=== PATIENT | female | born 2005 | race Caucasian/White ===

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

== ENCOUNTER 2024-03-05 13:04 | Emergency (ER) | payer OTHER, SELFPAY ==
[2024-03-05 14:10] VITALS: BP 102/66; PULSE 73; RESP 18; TEMP 36.6; O2SAT 100; BMI 21.2
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
[2024-03-05 14:33] VITALS: BP 102/66; PULSE 73; RESP 18; TEMP 36.6; O2SAT 100
--- NOTE | 2024-03-09 08:49 | PC.NURSE ---
REVIEWED WOUND CULTURE RESULT WITH Nguyen VIDAL. CURRENT ANTIBIOTIC CHANGED TO MINOCYCLINE 100 MG PO BID X 10 DAYS, CALLED INTO CLINIC PHARMACY. PATIENT NOTIFIED OF RESULTS AND CHANGE TO ANTIBIOTIC. PATIENT ADVISED TO FOLLOW UP WITH PCP IF SYMPTOMS PERSIST OR WORSEN. PATIENT VERBALIZED UNDERSTANDING
== END 2024-03-05 14:34 | disposition home or self-care (01) ==
PROVIDERS: Emergency Provider Nurse Practitioner Family; PCP Internal Medicine Adolescent Medicine
DX: L02.216 Cutaneous abscess of umbilicus (principal); B95.61 Methicillin susceptible Staphylococcus aureus infection as the cause of diseases classified elsewhere
CPT/HCPCS: 87070; 87077; 87186; 87205; 99212; 99214; G0463

== ENCOUNTER 2024-03-23 09:22 | Emergency (ER) | payer BC, OTHER, SELFPAY ==
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
[2024-03-23 09:40] VITALS: BP 109/71; PULSE 85; RESP 18; TEMP 36.6; O2SAT 100; BMI 21.6
--- NOTE | 2024-03-23 10:17 | EXP.UTC ---
Discharge Plan Disposition Patient Disposition: Home, Self-Care Condition: Good Prescriptions Prescriptions: No Action Lo Loestrin Fe 1 mg-10 mcg (24)/10 mcg (2) tablet 1 tab PO DAILY Qty: 84 3RF Referrals Follow up/Referrals: Osito Centeno MD [Primary Care Provider] - See instructions Activity Restrictions/Add. Instructions Additional Instructions/Restrictions: sprain- rest Ice with cold pack for 20 minutes remove may repeat for comfort every hour splint for support and swelling no less in the shower. Be sure not too tight but not to lose either Elevate with arm above your heart as much as possible to help reduce swelling and therefore pain Ibuprofen every 6 hours as needed for pain or inflammation. If needs something more you can take Tylenol every 4 hours as needed as long as her primary care has told he was okayed for you to take both. Follow-up immediately if new or worsening symptoms or no noticeable improvement over the next 3-5 days. call ortho if no improvement Clinical Impressions Clinical Impression: Right wrist sprain Instructions Patient Instructions: DI for Wrist Sprain Print Language Print Language: Irish Discharge ED Provider: Sen ([facility])[place] [facility] [place] General Stated complaint: AO 03/22 fall pain in right wrist Mode of Arrival: Ambulatory Source of Information: Patient Limitations: No Limitations Time Seen by Provider: 03/23/24 10:17 Description of Symptoms (Recalled from Triage Doc. by RN): PATIENT C/O RIGHT HAND AND WRIST PAIN AFTER FALLING AND INJURING IT YESTERDAY MORNING HEENT Symptoms (Recalled from RN notes): No Resp Symptoms (Recalled from RN notes): No Skin Symptoms (Recalled from RN notes): No MS Symptoms (Recalled from RN notes): Yes Functional Status (Recalled from RN notes): WNL History of Present Illness Provider Complaint: 18 yr old female presents for rt wrist pain. pt states she fell yesterday Related Data Previous Rx's ?Medication ?Instructions ?Recorded norethindrone 1 mg-ethinyl 1 tab PO DAILY #84 tabs 05/16/23 estradiol 10 mcg (24)-iron 10 mcg(2) tablet (Lo Loestrin Fe) Allergies Allergy/AdvReac Type Severity Reaction Status Date / Time No Known Allergies Allergy Verified 05/16/23 08:42 Worker's Comp Is this a Worker's Comp case?: No PFSH [facility] Disclaimer: The information contained in this section may have been updated after the patient was seen, as this information can be updated by other users. 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) Urinary tract infection Migraine Hyperlipidemia Ankle injury Surgical History , MEAT CURER) History of tonsillectomy Family History , MEAT CURER) No significant family history Social History (Reviewed 03/23/24 @ 10:22 by Humberto Chatterjee ([facility]), MEAT CURER) Smoking Status: Never smoker alcohol intake: never substance use type: denies use current occupational status: other Travel in the last 8 weeks: None household members: family housing: house ROS Obtained: Yes All systems reviewed & no additional complaints except as documented Eyes Eyes: Reports system reviewed and no additional complaints, except as documented ENT Ears, Nose, Mouth, and Throat: Reports system reviewed and no additional complaints, except as documented Cardiovascular Cardiovascular: Reports system reviewed and no additional complaints, except as documented Respiratory Respiratory: Reports system reviewed and no additional complaints, except as documented Gastrointestinal Gastrointestingal: Reports system reviewed and no additional complaints, except as documented Musculoskeletal Musculoskeletal: Reports system reviewed and no additional complaints, except as documented, Reports as per HPI, Reports arthralgias and Reports limited range of motion Integumentary/Breasts Skin/Breast: Reports system reviewed and no additional complaints, except as documented Neurologic Neurologic: Reports system reviewed and no additional complaints, except as documented Hematologic/Lymphatic Henatologic/Lymphatic: Reports system reviewed and no additional complaints, except as documented Allergic/Immunologic Allergic/Immunologic: Reports system reviewed and no additional complaints, except as documented Physical Exam General General appearance: alert and in no apparent distress Eye Eye exam: Present normal appearance ENT ENT exam: Present normal exam Respiratory Respiratory exam: Present normal lung sounds bilaterally Cardiovascular Cardiovascular exam: Present regular rate and normal rhythm Extremities Exam Extremities exam: Present normal inspection, tenderness and normal capillary refill Expanded Upper Extremity Exam Right: L/R Arms Top View: 1. tender Vascular exam: Normal capillary refill Neurological Exam Neurological exam: Present alert and oriented X3 Skin Skin exam: Present warm and intact Medical Decision Making Medical Records Medical records reviewed: Yes I reviewed the patient's medical records. Vinh Inquiry Pt receiving controlled substance: No Vinh was queried for this patient: No Vital Signs: 03/23/24 09:40 Temperature 97.9 F Temperature Source Oral Pulse Rate [Left Brachial] 85 Respiratory Rate 18 Blood Pressure [Left Arm] 109/71 L Blood Pressure Mean [Left Arm] 83 Blood Pressure Source [Left Arm] Automatic Cuff Blood Pressure Position [Left Arm] Sitting 02 Sat by Pulse Oximetry 100 Oxygen Delivery Method Room Air Orders (Tests/Meds): ORDERS Category Date Time Status Wrist XR right minimum 3 views [XR wrist RT min 3V] Exams 03/23/24 09:36 Taken Stat XR hand RT min 3V Stat Exams 03/23/24 09:36 Taken Radiology Data #1: Image Reviewed: Yes I reviewed the patient's radiology results Preliminary Findings: Normal/NAD
[2024-03-23 10:27] VITALS: BP 109/71; PULSE 85; RESP 18; TEMP 36.6; O2SAT 100
== END 2024-03-23 10:31 | disposition home or self-care (01) ==
PROVIDERS: Emergency Provider Nurse Practitioner Family; PCP Internal Medicine Adolescent Medicine
DX: S63.501A Unspecified sprain of right wrist, initial encounter (principal); M25.531 Pain in right wrist; W19.XXXA Unspecified fall, initial encounter
CPT/HCPCS: 73110; 73130; 99212; 99213; G0463

== ENCOUNTER 2024-08-08 18:35 | Emergency (ER) | payer BC, OTHER, SELFPAY ==
[2024-08-08 19:50] VITALS: BP 108/71; PULSE 116; RESP 18; TEMP 37.5; O2SAT 100; BMI 21.6
[2024-08-08 19:50] LABS: UTC Influenza A Antigen Positive (Negative); UTC Influenza B Antigen Negative (Negative)
[2024-08-08 20:00] VITALS: BP 108/71; PULSE 116; RESP 18; TEMP 37.5; O2SAT 100
--- NOTE | 2024-08-08 20:03 | ED_ITS ---
Discharge Plan Disposition Patient Disposition: Home, Self-Care Condition: Good Prescriptions Prescriptions: New oseltamivir [Tamiflu] 75 mg capsule 75 mg PO BID 5 Days Qty: 10 0RF No Action Lo Loestrin Fe 1 mg-10 mcg (24)/10 mcg (2) tablet 1 tab PO DAILY Qty: 84 3RF azithromycin [Zithromax Z-Christ] 250 mg tablet See Rx Instructions .ROUTE .COMPLEX 5 Days Qty: 6 0RF Rx Instructions: For 250 mg dose pack: take 500 mg today (day 1), then 250 mg for 4 days (days 2-5) Referrals Follow up/Referrals: Provider,Referral, MD [Primary Care Provider] - See instructions Activity Restrictions/Add. Instructions Additional Instructions/Restrictions: * Start Tamiflu today if you are going to take it. Discussed risk and possible benefits. * Lots of rest * Increase Fluids water, Gatorade, powerade, pedialyte,if infant/toddler/child * Alternate Tylenol and / or ibuprofen as discussed for fever, aches, chills Follow up IMMEDIATELY with your family doctor for new or worsening Symptoms OR no noticeable improvement over the next 48-72 hours, 911 for difficulty or breathing * You or your child area contagious until no fever, aches, chills for 24 hours with medication for symptoms * Help Prevent the spread of influenza: * ?Wash your hands often. Use soap and water. Wash your hands after you use the bathroom, change a child's diapers, or sneeze. Wash your hands before you prepare or eat food. Use gel hand cleanser that has 60% alcohol, when soap and water are not available. Do not touch your eyes, nose, or mouth unless you have washed your hands first. * Cover your mouth when you sneeze or cough. Cough into a tissue or the bend of your arm. If you use a tissue, throw it away immediately and wash your hands. * Clean shared items with a germ-killing char dust cleaner and salvager. Clean table surfaces, doorknobs, and light switches. Do not share towels, silverware, and dishes with people who are sick. Wash bed sheets, towels, silverware, and dishes with soap and water. * Wear a mask over your mouth and nose if you are sick. The face mask may help protect others from becoming infected with the flu. Wear the mask when in common areas of your home or if you seek care with a healthcare provider. * Stay away from others if you are sick. Stay at home until 24 hours after your fever and symptoms are gone. Clinical Impressions Clinical Impression: Influenza Stand Alone Forms Stand Alone Forms: Work/School Release Instructions Patient Instructions: DI for Influenza -- Adult, Oseltamivir Print Language Print Language: Prydeinig Discharge ED Provider: Dorita Patel Slava [facility] HPI General Stated complaint: nausea,body aches,headache Mode of Arrival: Ambulatory Source of Information: Patient Limitations: No Limitations Time Seen by Provider: 08/08/24 19:50 Description of Symptoms (Recalled from Triage Doc. by RN): PATIENT C/O BODY ACHES AND CHILLS THAT STARTED TODAY HEENT Symptoms (Recalled from RN notes): No Resp Symptoms (Recalled from RN notes): No Skin Symptoms (Recalled from RN notes): No MS Symptoms (Recalled from RN notes): No Functional Status (Recalled from RN notes): WNL History of Present Illness Provider Complaint: Patient states that she started feeling bad earlier today with body aches, chills, and headache States that several family members have been sick with the same symptoms so she came in to get checked Related Data Previous Rx's ?Medication ?Instructions ?Recorded norethindrone 1 mg-ethinyl 1 tab PO DAILY #84 tabs 05/16/23 estradiol 10 mcg (24)-iron 10 mcg(2) tablet (Lo Loestrin Fe) azithromycin 250 mg tablet See Rx Instructions PO .COMPLEX 5 04/14/24 (Zithromax Z-Christ) days #6 tabs oseltamivir 75 mg capsule (Tamiflu) 75 mg PO BID 5 days #10 caps 08/08/24 Allergies Allergy/AdvReac Type Severity Reaction Status Date / Time No Known Allergies Allergy Verified 05/16/23 08:42 Worker's Comp Is this a Worker's Comp case?: No [facility] Disclaimer: The information contained in this section may have been updated after the patient was seen, as this information can be updated by other users. 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) Smoking Status: Never smoker alcohol intake: never substance use type: denies use current occupational status: other Travel in the last 8 weeks: None household members: family housing: house Have you lived/traveled outside [place] in past 30 days?: No Contact w/someone who lives/traveled outside [place] past 30 days?: No Exposure to someone with infectious disease in past 14 days?: No Do you have a fever (greater than 100.4 F or 38 C)?: Yes Have you tested positive for COVID-19: No Exposed to someone with COVID-19 in past 14 days?: No Do you have a sore throat?: Yes Do you have a cough?: Yes Do you have any weakness?: Yes Do you have any diarrhea?: No Are you experiencing any unusual bleeding?: No Do you have any muscle aches/pain?: Yes Do you have any abdominal pain?: Yes Are you experiencing loss of taste or smell?: No ROS Obtained: Yes All systems reviewed & no additional complaints except as documented and Yes Systems reviewed as appropriate & no additional complaints except as documented Constitutional Constitutional: Reports system reviewed and no additional complaints, except as documented, Reports as per HPI, Reports body ache, Reports chills, Reports fever(s) and Reports headache(s) ENT Ears, Nose, Mouth, and Throat: Reports system reviewed and no additional complaints, except as documented, Reports as per HPI, Reports headache(s), Reports nasal congestion and Reports nasal discharge Cardiovascular Cardiovascular: Reports system reviewed and no additional complaints, except as documented and Reports as per HPI Respiratory Respiratory: Reports system reviewed and no additional complaints, except as documented and Reports as per HPI Neurologic Neurologic: Reports headache(s) Physical Exam General General appearance: alert and in no apparent distress ENT ENT exam: Present normal exam, normal oropharynx, mucous membranes moist and TM's normal bilaterally Respiratory Respiratory exam: Present normal lung sounds bilaterally; Absent respiratory distress or wheezes Cardiovascular Cardiovascular exam: Present regular rate, normal rhythm and tachycardia Abdominal Exam Abdominal exam: Present soft and normal bowel sounds; Absent distention or tenderness Neurological Exam Neurological exam: Present alert, oriented X3 and normal gait Medical Decision Making Medical Records Screening: Per USPSTF and CDC recommendations, given the prevalence of disease in our region, it is our hospital?s policy to screen for HIV and viral Hepatitis for all patients aged 18 and over and those with ongoing risk factors. Vinh Inquiry Pt receiving controlled substance: No Vinh was queried for this patient: No Vital Signs: 08/08/24 19:50 Temperature 99.5 F Temperature Source Oral Pulse Rate [Left Brachial] 116 H Respiratory Rate 18 Blood Pressure [Left Arm] 108/71 L Blood Pressure Mean [Left Arm] 83 Blood Pressure Source [Left Arm] Automatic Cuff Blood Pressure Position [Left Arm] Sitting 02 Sat by Pulse Oximetry 100 Oxygen Delivery Method Room Air Lab Data Lab results reviewed: Yes I reviewed the patient's lab results. Lab Results 08/08/24 19:33: Influenza Type A Ag Positive A, Influenza Type B Ag Negative
== END 2024-08-08 20:04 | disposition home or self-care (01) ==
PROVIDERS: Emergency Provider Nurse Practitioner
DX: J10.1 Influenza due to other identified influenza virus with other respiratory manifestations (principal)
CPT/HCPCS: 87804; 99213; G0381